=== PATIENT | male | born 2005 | race Two or more races ===

== ENCOUNTER 2024-06-25 00:38 | Emergency (ER) | payer MEDICAID, OTHER ==
[~2024-06-25] VITALS: Ht 175.3 cm; Wt 102.4 kg
[2024-06-25 01:09] VITALS: BP 135/78; PULSE 86; RESP 16; TEMP 99.1; O2SAT 98
[2024-06-25] MEDS: IBUPROFEN 800 MG TAB PO ONE (01:29)
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
[2024-06-25] MEDS ORDERED: IBUP-1456 PO (02:13)
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
== END 2024-06-25 02:26 | disposition home or self-care (01) ==
LOC: ER 00:38
DX: S46.812A Strain of other muscles, fascia and tendons at shoulder and upper arm level, left arm, initial encounter (principal); S13.4XXA Sprain of ligaments of cervical spine, initial encounter; S50.12XA Contusion of left forearm, initial encounter; V89.2XXA Person injured in unspecified motor-vehicle accident, traffic, initial encounter; Y93.I9 Activity, other involving external motion; Y92.488 Other paved roadways as the place of occurrence of the external cause; Y99.8 Other external cause status
CPT/HCPCS: 72040; 73030; 73090